=== PATIENT | female | born 1980 | race Two or more races ===

== ENCOUNTER 2021-09-06 17:25 | Emergency (ER) | payer MEDICAID ==
[~2021-09-06] VITALS: Ht 157.5 cm; Wt 59.0 kg
[2021-09-06 17:30] VITALS: BP 109/36
[2021-09-06 18:32] LABS: Urine Bacteria FEW /hpf (None Seen); Urine Blood Negative /uL (Negative); Urine Mucus FEW (None Seen); Urine Specific Gravity 1.021 (1.001-1.035); Urine WBC 1 /hpf (0 - 5)
[2021-09-06 18:39] LABS: Basophils # (auto) 0.1 10 ^3/uL (0-0.2); Basophils % (auto) 1.5 % (0.0-2.0); Eosinophils # (auto) 0.1 10 ^3/uL (0-0.8); Hematocrit 27.9 % (36.0-46.0); Hemoglobin 8.1 g/dL (12.2-16.2); Lymphocytes # (auto) 1.5 10 ^3/uL (0.4-5.4); Lymphocytes % (auto) 33.2 % (10.0-50.0); Mean Corpuscular Hemoglobin 19.1 pg (28.0-32.0); Monocytes # (auto) 0.4 10 ^3/uL (0-1.3)
[2021-09-06 18:40] LABS: Eosinophils % (auto) 3.3 % (0.0-7.0); Mean Corpuscular Volume 65.7 fL (80.0-100.0); Monocytes % (auto) 9.5 % (0.0-12.0); Neutrophils # (auto) 2.3 10 ^3/uL (1.6-8.6); Neutrophils % (auto) 52.5 % (37.0-80.0); Red Blood Cells 4.25 10^6/uL (4.0-5.20); Red Cell Distribution Width 16.8 % (11.8-14.3); White Blood Cell 4.4 10^3/uL (4.4-10.8)
[2021-09-06 18:53] LABS: Calcium 8.2 mg/dL (8.5-10.1); Potassium 4.1 mmol/L (3.5-5.1)
[2021-09-06 18:58] LABS: Albumin 3.7 g/dL (3.4-5.0); Bilirubin, Total 0.4 mg/dL (0.2-1.0); Total Protein 7.6 g/dL (6.4-8.2)
== END 2021-09-07 00:13 | disposition left against medical advice (07) ==
LOC: ER 17:25
DX: R10.31 Right lower quadrant pain (principal); R11.0 Nausea; E03.9 Hypothyroidism, unspecified; Z86.2 Personal history of diseases of the blood and blood-forming organs and certain disorders involving the immune mechanism
CPT/HCPCS: 36415; 80053; 81001; 81025; 85025

== ENCOUNTER → 2023-08-04 | Outpatient (CLI) | payer MEDICAID ==
[2023-08-04 16:04] LABS: Basophils # (auto) 0.1 10 ^3/uL (0-0.2); Basophils % (auto) 1.5 % (0.0-2.0); Eosinophils # (auto) 0.2 10 ^3/uL (0-0.8); Eosinophils % (auto) 4.8 % (0.0-7.0); Hematocrit 27.1 % (36.0-46.0); Hemoglobin 7.6 g/dL (12.2-16.2); Lymphocytes # (auto) 1.8 10 ^3/uL (0.4-5.4); Lymphocytes % (auto) 40.7 % (10.0-50.0); Mean Corpuscular Hemoglobin 17.5 pg (28.0-32.0); Mean Corpuscular Volume 62.4 fL (80.0-100.0); Monocytes # (auto) 0.4 10 ^3/uL (0-1.3); Nucleated Red Blood Cells % 0.1 %; Red Blood Cells 4.34 10^6/uL (4.0-5.20); Red Cell Distribution Width 21.8 % (11.8-14.3); White Blood Cell 4.4 10^3/uL (4.4-10.8)
[2023-08-04 16:28] LABS: INR 0.98 (0.9-1.15); Partial Thromboplastin Time 23.4 SEC (24.5-34.5); Prothrombin Time 10.3 sec (9.3-11.8)
[2023-08-04 16:39] LABS: Alanine Aminotransferase 12 U/L (7-40); Albumin 4.6 g/dL (3.2-4.8); Alkaline Phosphatase 56 U/L (46-116); Anion Gap 6 (5-15); Aspartate Aminotransferase 17 U/L (13-40); BUN/Creatinine Ratio 13.6 (10.0-20.0); Bilirubin, Total 0.5 mg/dL (0.2-1.0); Blood Urea Nitrogen 9 mg/dL (9-23); Carbon Dioxide 26 mmol/L (20-30); Chloride 109 mmol/L (98-107); Glucose 92 mg/dL (74-106); Potassium 3.9 mmol/L (3.5-5.1); Sodium 141 mmol/L (136-145); Total Protein 7.3 g/dL (5.7-8.2)
[2023-08-04 17:04] LABS: Anisocytosis Slight; Hypochromia Marked; Platelet Estimate Adequate
[2023-08-04 17:05] LABS: Large Platelets FEW
== END | disposition home or self-care (01) ==
LOC: LAB 15:33
PROVIDERS: ATTEND Obstetrics & Gynecology
DX: Z01.812 Encounter for preprocedural laboratory examination (principal)
CPT/HCPCS: 36415; 80053; 81025; 84146; 84702; 85025; 85610; 85730; 86850; 86900; 86901

== ENCOUNTER → 2023-08-11 | Outpatient (CLI) | payer MEDICAID ==
[~2023-08-11] VITALS: Ht 157.5 cm; Wt 63.5 kg
[~2023-08-11] MED LIST: CHOL100055 PO; DOCU-265 PO; FER325T PO; HYDR-4798 PO; HYDROmorphone HCL 2 MG/ML VL/or syr ONE; IBUP-1455 PO; LEVO100T8 PO
[2023-08-11 10:47] LABS: Basophils # (auto) 0.1 10 ^3/uL (0-0.2); Eosinophils # (auto) 0.2 10 ^3/uL (0-0.8); Mean Corpuscular Hgb Conc. 28.6 g/dL (32.0-36.0); Monocytes % (auto) 9.8 % (0.0-12.0); Red Blood Cells 4.18 10^6/uL (4.0-5.20)
[2023-08-11 10:49] LABS: Basophils % (auto) 1.1 % (0.0-2.0); Eosinophils % (auto) 3.8 % (0.0-7.0); Hemoglobin 7.7 g/dL (12.2-16.2); Lymphocytes # (auto) 1.9 10 ^3/uL (0.4-5.4); Lymphocytes % (auto) 34.1 % (10.0-50.0); Mean Corpuscular Hemoglobin 18.5 pg (28.0-32.0); Mean Corpuscular Volume 64.6 fL (80.0-100.0); Monocytes # (auto) 0.5 10 ^3/uL (0-1.3); Neutrophils # (auto) 2.8 10 ^3/uL (1.6-8.6); Neutrophils % (auto) 51.2 % (37.0-80.0); White Blood Cell 5.6 10^3/uL (4.4-10.8)
[2023-08-11 10:54] LABS: Red Cell Distribution Width 22.2 % (11.8-14.3)
[2023-08-11 10:59] LABS: INR 0.98 (0.9-1.15); Partial Thromboplastin Time 23.4 SEC (24.5-34.5); Prothrombin Time 10.3 sec (9.3-11.8)
[2023-08-11 11:02] LABS: Urine Bacteria FEW /hpf (None Seen); Urine Blood Negative /uL (Negative); Urine Clarity HAZY (Clear); Urine Color Yellow (Yellow); Urine Mucus FEW (None Seen); Urine Protein, UAD TRACE (Negative); Urine Specific Gravity 1.022 (1.001-1.035); Urine Urobilinogen Normal (Negative); Urine WBC 23 /hpf (0 - 5); Urine pH 6.5 (5.0-8.0)
[2023-08-11 11:32] LABS: Alanine Aminotransferase 18 U/L (7-40); Albumin 4.4 g/dL (3.2-4.8); Alkaline Phosphatase 61 U/L (46-116); Anion Gap 7 (5-15); Aspartate Aminotransferase 17 U/L (13-40); BUN/Creatinine Ratio 18.6 (10.0-20.0); Bilirubin, Total 0.5 mg/dL (0.2-1.0); Blood Urea Nitrogen 11 mg/dL (9-23); Calcium 9.2 mg/dL (8.5-10.1); Carbon Dioxide 25 mmol/L (20-30); Chloride 108 mmol/L (98-107); Glucose 104 mg/dL (74-106); Potassium 3.8 mmol/L (3.5-5.1); Sodium 140 mmol/L (136-145); Total Protein 7.1 g/dL (5.7-8.2)
== END | disposition home or self-care (01) ==
LOC: LAB 10:18 → EDSTATUS 08-13 08:30
PROVIDERS: ATTEND Obstetrics & Gynecology
DX: Z01.812 Encounter for preprocedural laboratory examination (principal); N85.2 Hypertrophy of uterus; D25.9 Leiomyoma of uterus, unspecified
CPT/HCPCS: 36415; 80053; 81001; 81025; 84702; 85025; 85610; 85730; 86850; 86900; 86901

== ENCOUNTER 2023-08-12 08:55 | Inpatient (IN) | payer MEDICAID ==
[~2023-08-12] VITALS: Ht 157.5 cm; Wt 65.8 kg
[2023-08-12] VITALS (8 sets, daily range): BP systolic 95–117; BP diastolic 40–61; PULSE 70–79; RESP 18; TEMP 97.1–98.6; O2SAT 97–100
[~2023-08-12 08:55] MED LIST changes: -DOCU-265 PO; -HYDR-4798 PO; -HYDROmorphone HCL 2 MG/ML VL/or syr ONE; -IBUP-1455 PO
[2023-08-12] MEDS ORDERED: ACETAMINOPHEN 500 MG TAB PO PRN (11:15)
[2023-08-12] MEDS ORDERED: LACTATED RINGER'S 1,000 ML IV SCH (11:15)
[2023-08-12 12:32] LABS: Basophils # (auto) 0.1 10 ^3/uL (0-0.2); Eosinophils # (auto) 0.2 10 ^3/uL (0-0.8); Lymphocytes # (auto) 1.1 10 ^3/uL (0.4-5.4); Monocytes # (auto) 0.5 10 ^3/uL (0-1.3); Neutrophils # (auto) 3.1 10 ^3/uL (1.6-8.6); Nucleated Red Blood Cells % 0.1 %; White Blood Cell 4.9 10^3/uL (4.4-10.8)
[2023-08-12 12:34] LABS: Eosinophils % (auto) 3.7 % (0.0-7.0); Hematocrit 27.5 % (36.0-46.0); Hemoglobin 7.7 g/dL (12.2-16.2); Lymphocytes % (auto) 22.4 % (10.0-50.0); Mean Corpuscular Hemoglobin 18.1 pg (28.0-32.0); Mean Corpuscular Hgb Conc. 28.1 g/dL (32.0-36.0); Mean Corpuscular Volume 64.3 fL (80.0-100.0); Monocytes % (auto) 9.6 % (0.0-12.0); Neutrophils % (auto) 63.3 % (37.0-80.0); Red Blood Cells 4.28 10^6/uL (4.0-5.20)
[2023-08-12 12:48] LABS: INR 0.98 (0.9-1.15); Partial Thromboplastin Time 23.5 SEC (24.5-34.5); Prothrombin Time 10.3 sec (9.3-11.8)
[2023-08-12 12:49] LABS: Red Cell Distribution Width 22.6 % (11.8-14.3)
[2023-08-12 13:08] LABS: Alkaline Phosphatase 56 U/L (46-116)
[2023-08-12 13:09] LABS: Alanine Aminotransferase 14 U/L (7-40); Albumin 4.5 g/dL (3.2-4.8); Anion Gap 6 (5-15); Aspartate Aminotransferase 15 U/L (13-40); BUN/Creatinine Ratio 22.2 (10.0-20.0); Bilirubin, Total 0.6 mg/dL (0.2-1.0); Blood Urea Nitrogen 12 mg/dL (9-23); Calcium 9.1 mg/dL (8.5-10.1); Carbon Dioxide 24 mmol/L (20-30); Chloride 110 mmol/L (98-107); Glucose 94 mg/dL (74-106); Potassium 4.1 mmol/L (3.5-5.1); Sodium 140 mmol/L (136-145); Total Protein 7.1 g/dL (5.7-8.2)
[2023-08-13] VITALS (9 sets, daily range): BP systolic 97–120; BP diastolic 41–73; PULSE 67–83; RESP 12–18; TEMP 98.1–99; O2SAT 10–100
[2023-08-13] MEDS ORDERED: CELECOXIB 100 MG CAP PO ONE (06:00)
[2023-08-13] MEDS ORDERED: GABAPENTIN 300 MG CAP PO ONE (06:00)
[2023-08-13] MEDS ORDERED: ceFAZolin 2 GM/D5W100ml 100 ML IV ONE (06:00)
[2023-08-13 06:44] LABS: Urine Bacteria FEW /hpf (None Seen); Urine Blood Negative /uL (Negative); Urine Clarity HAZY (Clear); Urine Color Yellow (Yellow); Urine Mucus FEW (None Seen); Urine Protein, UAD TRACE (Negative); Urine Specific Gravity 1.024 (1.001-1.035); Urine Urobilinogen Normal (Negative); Urine WBC 53 /hpf (0 - 5)
[2023-08-13] MEDS ORDERED: ACETAMINOPHEN IV 100 ML IV ONE (06:46)
[2023-08-13 07:29] LABS: Alanine Aminotransferase 15 U/L (7-40); Albumin 4.3 g/dL (3.2-4.8); Alkaline Phosphatase 53 U/L (46-116); Anion Gap 9 (5-15); Aspartate Aminotransferase 14 U/L (13-40); BUN/Creatinine Ratio 15.1 (10.0-20.0); Bilirubin, Total 0.8 mg/dL (0.2-1.0); Blood Urea Nitrogen 8 mg/dL (9-23); Calcium 8.9 mg/dL (8.5-10.1); Carbon Dioxide 20 mmol/L (20-30); Chloride 111 mmol/L (98-107); Glucose 88 mg/dL (74-106); Potassium 3.5 mmol/L (3.5-5.1); Sodium 140 mmol/L (136-145)
[2023-08-13 07:30] LABS: Total Protein 6.9 g/dL (5.7-8.2)
[2023-08-13] MEDS ORDERED: HYDROmorphone HCL 2 MG/ML VL/or syr ONE (07:30)
[2023-08-13] MEDS ORDERED: MIDAZOLAM HCL 2MG/2ML 2ml VIAL (1mg/ml) ONE (07:30)
[2023-08-13] MEDS ORDERED: fentaNYL CITRATE 100 MCG/2 ML VL ONE ×2 (07:30→07:48)
[2023-08-13] MEDS ORDERED: SUCCINYLCHOLINE CHLORIDE 20 MG/ML 10ML VIAL IV ONE (07:31)
[2023-08-13] MEDS ORDERED: DexAMETHasone SOD PHOS 10MG/1ML VIAL INJ ONE (07:48)
[2023-08-13] MEDS ORDERED: MIDAZOLAM HCL 2MG/2ML 2ml VIAL (1mg/ml) IV PRN (08:00)
[2023-08-13] MEDS ORDERED: MORPHINE SULFATE 4 MG/ML SYR/VIAL IV PRN (08:00)
[2023-08-13] MEDS ORDERED: ONDANSETRON HCL 4 MG/2 ML VIAL IV PRN (08:00)
[2023-08-13] MEDS ORDERED: KETOROLAC TROMETH 30 MG/ML 1ML VIAL IV ONE (08:00)
[2023-08-13] MEDS ORDERED: ePHEDrine SULFATE 50 MG/ML AMP IV PRN (08:00)
[2023-08-13] MEDS ORDERED: LABETALOL HCL 5 MG/ML 4ML SYRINGE IV PRN (08:00)
[2023-08-13] MEDS ORDERED: ROCURONIUM 10MG/ML 10ML VIAL IV ONE (08:07)
[2023-08-13] MEDS ORDERED: ONDANSETRON HCL 4 MG/2 ML VIAL ONE (08:08)
[2023-08-13 08:32] LABS: Eosinophils # (auto) 0.1 10 ^3/uL (0-0.8); Hemoglobin 9.8 g/dL (12.2-16.2); Lymphocytes # (auto) 1.6 10 ^3/uL (0.4-5.4); Monocytes # (auto) 0.5 10 ^3/uL (0-1.3); Neutrophils # (auto) 2.6 10 ^3/uL (1.6-8.6); White Blood Cell 4.9 10^3/uL (4.4-10.8)
[2023-08-13 08:35] LABS: Basophils # (auto) 0.1 10 ^3/uL (0-0.2); Basophils % (auto) 1.1 % (0.0-2.0); Eosinophils % (auto) 3.1 % (0.0-7.0); Hematocrit 33.5 % (36.0-46.0); Lymphocytes % (auto) 32.4 % (10.0-50.0); Mean Corpuscular Hemoglobin 20.2 pg (28.0-32.0); Mean Corpuscular Hgb Conc. 29.2 g/dL (32.0-36.0); Mean Corpuscular Volume 69.1 fL (80.0-100.0); Monocytes % (auto) 10.8 % (0.0-12.0); Neutrophils % (auto) 52.6 % (37.0-80.0); Nucleated Red Blood Cells % 0.1 %; Red Blood Cells 4.86 10^6/uL (4.0-5.20)
[2023-08-13 08:47] LABS: Red Cell Distribution Width 27.1 % (11.8-14.3)
[2023-08-13] MEDS ORDERED: KETOROLAC TROMETH 30 MG/ML 1ML VIAL IV PRN (10:00)
[2023-08-13] MEDS ORDERED: HYDROcodone-ACET 10/325MG TAB PO PRN ×2 (10:00)
[2023-08-13] MEDS: HYDROmorphone HCL 2 MG/ML VL/or syr IV PRN ×5 (10:08→23:02)
[2023-08-13] MEDS: LACTATED RINGER'S 1,000 ML IV SCH ×2 (12:00→18:12)
[2023-08-13] MEDS: ONDANSETRON HCL 4 MG/2 ML VIAL IV PRN ×2 (12:14→17:05)
[2023-08-13 12:34] LABS: Anisocytosis Moderate; Hypochromia Marked; Platelet Estimate Adequate
[2023-08-13 13:05] LABS: Basophils # (auto) 0 10 ^3/uL (0-0.2); Basophils % (auto) 0.1 % (0.0-2.0); Eosinophils # (auto) 0 10 ^3/uL (0-0.8); Neutrophils # (auto) 19.5 10 ^3/uL (1.6-8.6); White Blood Cell 21.2 10^3/uL (4.4-10.8)
[2023-08-13 13:07] LABS: Eosinophils % (auto) 0.1 % (0.0-7.0); Hematocrit 28.2 % (36.0-46.0); Hemoglobin 8.3 g/dL (12.2-16.2); Lymphocytes # (auto) 0.8 10 ^3/uL (0.4-5.4); Lymphocytes % (auto) 3.5 % (10.0-50.0); Mean Corpuscular Hemoglobin 20.5 pg (28.0-32.0); Mean Corpuscular Hgb Conc. 29.5 g/dL (32.0-36.0); Mean Corpuscular Volume 69.5 fL (80.0-100.0); Monocytes # (auto) 0.9 10 ^3/uL (0-1.3); Monocytes % (auto) 4.3 % (0.0-12.0); Red Blood Cells 4.06 10^6/uL (4.0-5.20)
[2023-08-13 13:13] LABS: Red Cell Distribution Width 26.8 % (11.8-14.3)
[2023-08-13 14:37] LABS: Anisocytosis Moderate; Platelet Estimate Adequate
[2023-08-13 14:38] LABS: Hypochromia Marked
[2023-08-13 20:30] LABS: Basophils # (auto) 0 10 ^3/uL (0-0.2); Eosinophils # (auto) 0 10 ^3/uL (0-0.8); Hemoglobin 7.2 g/dL (12.2-16.2); Lymphocytes # (auto) 0.4 10 ^3/uL (0.4-5.4); Lymphocytes % (auto) 2.4 % (10.0-50.0); Monocytes # (auto) 0.9 10 ^3/uL (0-1.3)
[2023-08-13 20:32] LABS: Hematocrit 24.4 % (36.0-46.0); Mean Corpuscular Hemoglobin 20.2 pg (28.0-32.0); Mean Corpuscular Hgb Conc. 29.5 g/dL (32.0-36.0); Mean Corpuscular Volume 68.4 fL (80.0-100.0); Monocytes % (auto) 5.7 % (0.0-12.0); Neutrophils # (auto) 14.4 10 ^3/uL (1.6-8.6); Neutrophils % (auto) 91.9 % (37.0-80.0); Red Blood Cells 3.57 10^6/uL (4.0-5.20); White Blood Cell 15.7 10^3/uL (4.4-10.8)
[2023-08-13 20:37] LABS: Red Cell Distribution Width 26.4 % (11.8-14.3)
[2023-08-13] MEDS: DOCUSATE SOD 100 MG CAP PO SCH (23:02)
[2023-08-14] VITALS (13 sets, daily range): BP systolic 87–112; BP diastolic 36–56; PULSE 66–82; RESP 14–19; TEMP 97.6–100.1; O2SAT 96–100
[2023-08-14] MEDS: LACTATED RINGER'S 1,000 ML IV SCH ×3 (02:51→19:20)
[2023-08-14] MEDS: MILK OF MAGNESIA 30ML SUSP PO SCH ×2 (08:26→09:39)
[2023-08-14 08:39] LABS: Basophils # (auto) 0 10 ^3/uL (0-0.2); Eosinophils # (auto) 0 10 ^3/uL (0-0.8); Hemoglobin 8.1 g/dL (12.2-16.2); Lymphocytes # (auto) 0.7 10 ^3/uL (0.4-5.4); Mean Corpuscular Volume 71.8 fL (80.0-100.0); Monocytes # (auto) 0.8 10 ^3/uL (0-1.3)
[2023-08-14 08:43] LABS: Basophils % (auto) 0.2 % (0.0-2.0); Eosinophils % (auto) 0.2 % (0.0-7.0); Hematocrit 27.1 % (36.0-46.0); Lymphocytes % (auto) 7.7 % (10.0-50.0); Mean Corpuscular Hemoglobin 21.5 pg (28.0-32.0); Monocytes % (auto) 9.3 % (0.0-12.0); Neutrophils # (auto) 7.3 10 ^3/uL (1.6-8.6); Neutrophils % (auto) 82.6 % (37.0-80.0); Nucleated Red Blood Cells % 0.1 %; Red Blood Cells 3.77 10^6/uL (4.0-5.20); White Blood Cell 8.8 10^3/uL (4.4-10.8)
[2023-08-14 08:47] LABS: Red Cell Distribution Width 27.1 % (11.8-14.3)
[2023-08-14 08:48] LABS: Chloride 111 mmol/L (98-107); Potassium 3.7 mmol/L (3.5-5.1); Sodium 142 mmol/L (136-145)
[2023-08-14 08:49] LABS: Anion Gap 6 (5-15); Carbon Dioxide 25 mmol/L (20-30)
[2023-08-14 08:50] LABS: Calcium 8.4 mg/dL (8.5-10.1)
[2023-08-14 08:54] LABS: Glucose 109 mg/dL (74-106)
[2023-08-14 08:55] LABS: BUN/Creatinine Ratio 9.1 (10.0-20.0); Blood Urea Nitrogen < 5 mg/dL (9-23)
[2023-08-14] MEDS: DOCUSATE SOD 100 MG CAP PO SCH ×2 (09:39→22:10)
[2023-08-14] MEDS: FERROUS SULFATE 325mg EC TAB PO SCH ×3 (09:39→18:25)
[2023-08-14] MEDS: HYDROmorphone HCL 2 MG/ML VL/or syr IV PRN ×2 (09:40→14:25)
[2023-08-15] VITALS (7 sets, daily range): BP systolic 103–118; BP diastolic 41–56; PULSE 75–83; RESP 12–16; TEMP 98.2–99.3; O2SAT 94–98
[2023-08-15] MEDS: LACTATED RINGER'S 1,000 ML IV SCH ×3 (01:32→21:07)
[2023-08-15] MEDS: HYDROmorphone HCL 2 MG/ML VL/or syr IV PRN ×2 (04:53→11:19)
[2023-08-15 05:30] LABS: Hemoglobin 9.5 g/dL (12.2-16.2); Lymphocytes # (auto) 0.9 10 ^3/uL (0.4-5.4); Monocytes # (auto) 0.7 10 ^3/uL (0-1.3)
[2023-08-15 05:34] LABS: Basophils # (auto) 0 10 ^3/uL (0-0.2); Basophils % (auto) 0.7 % (0.0-2.0); Eosinophils # (auto) 0 10 ^3/uL (0-0.8); Eosinophils % (auto) 0.7 % (0.0-7.0); Hematocrit 30.8 % (36.0-46.0); Lymphocytes % (auto) 14.1 % (10.0-50.0); Mean Corpuscular Hemoglobin 22.2 pg (28.0-32.0); Mean Corpuscular Hgb Conc. 30.8 g/dL (32.0-36.0); Monocytes % (auto) 10.9 % (0.0-12.0); Neutrophils # (auto) 4.8 10 ^3/uL (1.6-8.6); Neutrophils % (auto) 73.6 % (37.0-80.0); Nucleated Red Blood Cells % 0.1 %; Red Blood Cells 4.28 10^6/uL (4.0-5.20); White Blood Cell 6.5 10^3/uL (4.4-10.8)
[2023-08-15 05:57] LABS: Red Cell Distribution Width 26.9 % (11.8-14.3)
[2023-08-15 06:00] LABS: Albumin 3.8 g/dL (3.2-4.8); Alkaline Phosphatase 48 U/L (46-116); Anion Gap 7 (5-15); Aspartate Aminotransferase 18 U/L (13-40); Calcium 8.4 mg/dL (8.7-10.4); Carbon Dioxide 23 mmol/L (20-30); Chloride 111 mmol/L (98-107); Glucose 97 mg/dL (74-106); Potassium 3.7 mmol/L (3.5-5.1); Sodium 141 mmol/L (136-145)
[2023-08-15 06:01] LABS: Bilirubin, Total 0.6 mg/dL (0.2-1.0); Total Protein 6.5 g/dL (5.7-8.2)
[2023-08-15 06:16] LABS: Alanine Aminotransferase < 9 U/L (7-40); BUN/Creatinine Ratio 9.4 (10.0-20.0); Blood Urea Nitrogen < 5 mg/dL (9-23)
[2023-08-15] MEDS: FERROUS SULFATE 325mg EC TAB PO SCH ×3 (08:24→17:30)
[2023-08-15] MEDS: DOCUSATE SOD 100 MG CAP PO SCH ×2 (08:25→21:05)
[2023-08-15] MEDS: MILK OF MAGNESIA 30ML SUSP PO SCH (08:25)
[2023-08-16] MEDS: HYDROmorphone HCL 2 MG/ML VL/or syr IV PRN (04:00)
[2023-08-16 04:41] VITALS: BP 111/53; PULSE 72; RESP 15; TEMP 98.6; O2SAT 97
[2023-08-16] MEDS: LACTATED RINGER'S 1,000 ML IV SCH ×2 (05:41→13:00)
[2023-08-16 07:00] VITALS: PULSE 87; RESP 19; O2SAT 95
[2023-08-16] MEDS ORDERED: DOCU-265 PO (07:31)
[2023-08-16] MEDS ORDERED: HYDR-4798 PO ×3 (07:31→16:37)
[2023-08-16] MEDS ORDERED: IBUP-1455 PO (07:34)
[2023-08-16 08:25] VITALS: PULSE 87; RESP 19; O2SAT 95
[2023-08-16 09:00] VITALS: BP 113/46; PULSE 64; RESP 14; TEMP 98.6; O2SAT 96
[2023-08-16] MEDS: MILK OF MAGNESIA 30ML SUSP PO SCH (09:47)
[2023-08-16] MEDS: FERROUS SULFATE 325mg EC TAB PO SCH ×3 (09:47→18:00)
[2023-08-16] MEDS: DOCUSATE SOD 100 MG CAP PO SCH (09:48)
[2023-08-16 13:00] VITALS: BP 122/47; PULSE 61; RESP 16; TEMP 98.1; O2SAT 98
[2023-08-16] MEDS ORDERED: POLYETHYLENE GLYCOL 17 GM PWDR PO ONE (14:00)
[2023-08-16] MEDS ORDERED: FLEET ENEMA(ADULT) 135 ML PR ONE (16:30)
[2023-08-16 17:00] VITALS: BP 114/48; PULSE 71; RESP 16; TEMP 99.3; O2SAT 96
== END 2023-08-16 18:53 | disposition home or self-care (01) | DRG 519 ==
LOC: WEST WING 10:35
PROVIDERS: ADMIT Obstetrics & Gynecology; ATTEND Nurse Practitioner Acute Care
PROC: 30233N1 Transfusion of Nonautologous Red Blood Cells into Peripheral Vein, Percutaneous Approach (ICD-10-PCS; 2023-08-12)
PROC: 0UT90ZZ Resection of Uterus, Open Approach (ICD-10-PCS; 2023-08-13)
PROC: 0UT70ZZ Resection of Bilateral Fallopian Tubes, Open Approach (ICD-10-PCS; principal; 2023-08-13 07:35)
DX: D25.9 Leiomyoma of uterus, unspecified (principal); D62 Acute posthemorrhagic anemia; N92.0 Excessive and frequent menstruation with regular cycle
CPT/HCPCS: 36415; 80048; 80053; 81001; 84702; 85025; 85610; 85730; 86850; 86900; 86901; 86920; 97116; 97163; 97530; G0378; J0131; J0330; J1100; J2250; J2405; J7060

== ENCOUNTER 2023-08-20 09:41 | Emergency (ER) | payer MEDICAID ==
[~2023-08-20 09:41] MED LIST changes: +DOCU-265 PO; +HYDR-4798 PO; +IBUP-1455 PO
== END 2023-08-20 10:10 | disposition left against medical advice (07) ==
LOC: ER 09:41
DX: Z00.00 Encounter for general adult medical examination without abnormal findings (principal); Z53.21 Procedure and treatment not carried out due to patient leaving prior to being seen by health care provider

== ENCOUNTER → 2024-04-17 | Outpatient (CLI) | payer MEDICAID ==
[2024-04-17 16:28] LABS: LDL Cholesterol 166 mg/dL (< 100); Triglycerides 153 mg/dL (< 150)
[2024-04-17 16:29] LABS: Cholesterol 228 mg/dL (< 200)
[2024-04-17 16:30] LABS: HDL Cholesterol 49 mg/dL (40-59)
== END | disposition home or self-care (01) ==
LOC: LAB 15:03
PROVIDERS: ATTEND Internal Medicine Endocrinology, Diabetes & Metabolism
DX: E03.9 Hypothyroidism, unspecified (principal); R79.89 Other specified abnormal findings of blood chemistry
CPT/HCPCS: 36415; 80061; 83036; 84443

== ENCOUNTER → 2024-07-17 | Outpatient (CLI) | payer MEDICAID ==
[2024-07-17 15:42] LABS: % Iron Saturation 13.4 % (15-50)
== END | disposition home or self-care (01) ==
LOC: LAB 14:21
PROVIDERS: ATTEND Internal Medicine Endocrinology, Diabetes & Metabolism
DX: D64.9 Anemia, unspecified (principal)
CPT/HCPCS: 82728; 83540; 83550